=== PATIENT | male | born 1995 | race Caucasian/White ===

== ENCOUNTER → 2016-07-23 | Day surgery (SDC) | payer OTHER ==
[~2016-07-23] VITALS: Ht 193 cm; Wt 186.0 kg
[2016-07-23] VITALS (8 sets, daily range): BP systolic 112–152; BP diastolic 58–94; PULSE 68–94; TEMP 36.6–36.7; O2SAT 98–100; Ht 193 cm; Wt 186.0 kg
[~2016-07-23] MED LIST: ACETAMINOPHEN 500 MG TAB PO PRN; ACETAZOLAMIDE 250 MG PO
--- NOTE | 2016-07-23 11:35 | Discharge Instructions ---
Discharge Instructions Procedure Procedure Date: Jul 23, 2016. Reason for visit: W/Opening & Closing Pressure/Patilledema. Discharge Discharge Date: Jul 23, 2016. Discharge Diagnosis: Headache. Pappiiedema Instructions Activity Recommendations: 1 Day-May resume regular activity, 48 Hours of decreased exertion, 1 Day with no exercise/sex/sports, 1 Day with no driving/ machine use Return to School/Work: no limitations Recommended Home Diet: Resume Previous Diet Provider Instructions: Opening pressure 35. Closing pressure 20 Lumbar Puncture performed with Fluoroscopic guidance [L45 ] level with [ 22] needle. No complications. Allergies Coded Allergies: No Known Allergies (Unverified , 07/23/16) Dorita Christina Recommendations: Call your doctor if: * Temperature above 101 degrees * Pain not relieved by pain medicine ordered * There is increased drainage or redness from any incision * You have any unanswered questions or concerns. Your Doctors Instructions noted above were prepared by provider Yazan Sen. Patient Signature Section: Patient Instructions Signature Page Filemon Cotton Patient (or Guardian) Signature/Date: I have read and understand the instructions given to me by my caregivers. Caregiver/RN/Doctor Signature/Date: The above-named patient and/or guardian has received patient instructions on this date. + Original Patient Signature Page (only) stays with chart. Please make copy for patient.
[2016-07-23 11:53] LABS: CSF APPEARANCE CLEAR; CSF COLOR COLORLESS; CSF XANTHOCHROMIC NO XANTHOCHROMIA
--- NOTE | 2016-07-23 11:59 | DIAGNOSTIC IMAGING REPORT ---
FLUOROSCOPICALLY GUIDED LUMBAR PUNCTURE CLINICAL HISTORY: Papilledema headache FLUOROSCOPY TIME: 0.2 minutes PROCEDURE: The procedure, risks and benefits were discussed with the patient including the risk of spinal headache, bleeding and infection. The patient agreed to the procedure and informed written consent was obtained. The procedure was performed by Dr. Sen following a timeout. The left L3-L4 interlaminar space was targeted. Skin overlying the space was prepped and draped in the usual sterile fashion and local anesthesia was achieved with 1% lidocaine. Under intermittent fluoroscopic guidance, a 20-gauge x 3 1/2 in. Sprotte needle was inserted into the thecal sac. A total of 15cc of clear, colorless cerebral spinal fluid was obtained and spread amongst 4 vials. The patient tolerated the procedure well. There were no immediate complications. The specimens were sent to the laboratory at the request of the referring physician. (Pressure was 35 mmHg. Closing pressure was 20 mmHg. IMPRESSION: Successful fluoroscopic guided lumbar puncture with removal of 15 cc of clear, colorless cerebral spinal fluid. No immediate complications. Opening pressure 35 mmHg. Closing pressure 20 mmHg Electronically signed by: Yazan Sen M.D. 07/23/2016 11:58 AM Dictated Date/Time: 07/23/2016 11:57 AM
[2016-07-23 12:04] LABS: CSF TOTAL PROTEIN 23.7 mg/dl (15.0-45.0)
[2016-07-29 13:31] LABS: IGG CSF 0.9 mg/dL (0.8-7.7); IGG SERUM 1110 mg/dL (694-1618); LYME DNA PCR CSF OR SYNOVIAL Not detected (Not Detected); LYME DNA SOURCE CSF; MYELIN BASIC PROTEIN 663 <2.0 mcg/L (0.0-4.0)
== END | disposition home or self-care (01) ==
LOC: C.ACU 09:50
PROVIDERS: ATTEND Psychiatry & Neurology Neurology
DX: H47.10 Unspecified papilledema (principal)